=== PATIENT | female | born 2000 | race African-American/Black ===

== ENCOUNTER 2025-01-21 01:54 | Emergency (ER) | payer MEDICAID ==
[~2025-01-21] VITALS: Ht 149.9 cm; Wt 93.0 kg
[2025-01-21 02:15] VITALS: TEMP 36.8; O2SAT 100
[2025-01-21 02:27] VITALS: TEMP 98.3
[2025-01-21] MEDS: ACETAMINOPHEN 325MG TABLET PO ONE (02:27)
[2025-01-21] MEDS: ONDANSETRON 4MG ODT PO ONE (02:27)
[2025-01-21 02:36] LABS: CLARITY URINE CLOUDY (CLEAR); COLOR URINE YELLOW (YELLOW); GLUCOSE URINE NEGATIVE (NEGATIVE); KETONES URINE TRACE (NEGATIVE); LEUKOCYTE ESTERASE URINE 1+ (NEGATIVE); NITRITE URINE NEGATIVE (NEGATIVE); OCCULT BLOOD URINE NEGATIVE (NEGATIVE); PH URINE 5.5 (4.5-8.0); PROTEIN URINE NEGATIVE (NEGATIVE); SPECIFIC GRAVITY URINE 1.016 (1.005-1.030); UROBILINOGEN URINE 0.2 E.U./dL (0.2-1.0)
[2025-01-21 03:25] LABS: BASOPHILS % 0.5 % (0.0-2.0); EOSINOPHILS % 0.5 % (0.0-5.0); HEMATOCRIT. 38.3 % (36.0-48.0); HEMOGLOBIN. 12.6 g/dL (12.0-16.0); LYMPHOCYTES % 13.2 % (20.0-50.0); MEAN PLATELET VOLUME 8.7 fl (7.4-10.4); MONOCYTES % 5.4 % (2.0-8.0); NEUTROPHILS % 80.4 % (40.0-76.0); PLATELET 385 x1000/uL (130-400); RED BLOOD CELL COUNT 4.41 mill/uL (4.2-5.4); RED CELL DISTRIBUTION WIDTH 13.8 % (11.6-14.6)
[2025-01-21] MEDS: KETOROLAC 15MG/ML VIAL IM ONE (03:32)
[2025-01-21 03:54] LABS: CREATININE 0.7 mg/dL (0.6-1.0)
[2025-01-21 03:55] LABS: UREA NITROGEN BLOOD 8 mg/dL (9-23)
[2025-01-21 03:56] LABS: ASPARTATE AMINOTRANSFERASE 15 IU/L (<34)
[2025-01-21 03:57] LABS: BILIRUBIN DIRECT 0.2 mg/dL (<=3.0); BILIRUBIN TOTAL 0.6 mg/dL (0.1-1.0); PROTEIN TOTAL 7.0 g/dL (6.0-8.3)
[2025-01-21 04:03] LABS: HCG SCREEN NEGATIVE
[2025-01-21 04:08] LABS: SQUAMOUS EPITHELIAL CELL URINE 3+ /lpf (RARE/1+)
[2025-01-21 04:09] LABS: WBC URINE 0-2 /hpf (0-2)
[2025-01-21 04:10] LABS: RBC URINE 0-2 /hpf (0-2)
[2025-01-21 04:11] LABS: BACTERIA URINE 1+
[2025-01-21] MEDS ORDERED: FAMO-135 MT (04:53)
[2025-01-21] MEDS ORDERED: ONDA4TAB50 MT (04:53)
[2025-01-21] MEDS ORDERED: MAG-55 MT (04:53)
[2025-01-21 05:08] VITALS: BP 114/59; PULSE 68; RESP 18; O2SAT 99
== END 2025-01-21 05:13 | disposition home or self-care (01) ==
LOC: ER 01:54
DX: K29.70 Gastritis, unspecified, without bleeding (principal)
CPT/HCPCS: 80076; 80048; 81003; 84703; 83690; 85025; 36415; 74176; 96372; 99285; Q0162; J1885; Z7610